=== PATIENT | female | born 1960 | race African-American/Black ===

== ENCOUNTER → 2016-12-28 | Outpatient (CLI) | payer OTHER ==
[~2016-12-28] MED LIST: ALBUTEROL17 GM INH; BLOOD PRESSURE MED; ULCER MED; VOLTAREN50 MG PO; ZITHROMAX1 G/PKT PO
--- NOTE | ~2016-12-28 | CT2 ---
[facility] Service of [facility] & [facility] RADIOLOGY TEXT RESULTS PATIENT: JAIRO ANNA LOCATION: [facility] : 56 UNIT #: [id number] AGE: [address]: SINTIA BENSON APRN SEX: F ORDER DR: [id number] [facility] [address] [place], [place] [address] [id number] O MR#: [id number] #: [id number] NAME: JAIRO ANNA : 1960 SEX: F STUDY DATE/TIME: 12/28/2016 14:02 UNIT: [facility] ROOM: STUDY DESCRIPTION: CT Abd and Pelv W Cont Attending Physician: Alvina Benson A.P.R.N. Referring Physician: Alvina Benson A.P.R.N. Ordering Physician: Alvina Benson A.P.R.N. Primary Care Physician: Alvina Benson A.P.R.N. MEDICAL IMAGING REPORT This report is preliminary unless electronic signature is present EXAM CT of the abdomen and pelvis with contrast. CLINICAL HISTORY Patient reports left-sided abdominal pain for 3 years. She reportedly has a history of an abnormal ultrasound. That study has not been submitted for comparison. TECHNIQUE Axial CT images were obtained from the dome of the diaphragm through the symphysis pubis following administration of oral and intravenous contrast material. This CT exam was performed with one or more of the following radiation dose reduction techniques: automatic exposure control, adjustment of mA and/or kV according to patient size, and iterative reconstruction. FINDINGS Images through the lung bases are clear. Stomach and proximal small bowel appear unremarkable. Liver appears normal. There is no intra or extrahepatic biliary dilatation. Gallbladder is surgically absent. Spleen and pancreas are within normal limits. There is a 1.1 cm left adrenal nodule which is larger than on the prior CT from March of 2010. This still statistically is most likely an adenoma but is incompletely characterized on this single phase exam. The patient does have a retroaortic left renal vein. There is no evidence of a mechanical bowel obstruction. The appendix is visualized and is within normal limits. Urinary bladder is normal as are the ovaries. There is some colonic diverticulosis without any evidence of diverticulitis. No free fluid or adenopathy is seen within the pelvis. Review of bony windows does not demonstrate any aggressive osseous abnormalities. [facility] Service of [facility] RADIOLOGY TEXT RESULTS PATIENT: JAIRO ANNA LOCATION: [facility] : 56 UNIT #: [id number] AGE: [address]: SINTIA BENSON [employer]BER OPERATOR SEX: F ORDER DR: IMPRESSION 1. This patient has a left adrenal nodule which has increased in size when compared to the exam from March 2010. Still only measures about a centimeter in size and statistically is most likely an adenoma but is incompletely assessed on this study. It would be better assessed with adrenal protocol CT or MRI. 2. The patient reportedly had an abnormal ultrasound, that study is not available for comparison. Certainly don't see any acute abnormalities within the abdomen. Solid organs are otherwise unremarkable. There is no evidence of mechanical bowel obstruction. While the gallbladder is absent, I don't see any intra or extrahepatic biliary dilatation. Dictated by... Roseline Ennis M.D. THIS IS AN ELECTRONICALLY VERIFIED REPORT Roseline Ennis M.D. at 12/30/2016 2:44 PM SARAVANAN/paramjit TD: 12/29/2016 23:02 JOB #: [id number] MEDICAL IMAGING REPORT Page 1 of 1 COPY
[2016-12-28 13:16] LABS: POC - CREATININE 0.88 mg/dL (0.44-1.03); POC - GFR >60.0 mL/min (>60)
== END | disposition home or self-care (01) ==
LOC: CCAT 12:32
PROVIDERS: Nurse Practitioner Family
DX: R10.9 Unspecified abdominal pain (principal); E27.8 Other specified disorders of adrenal gland; R93.5 Abnormal findings on diagnostic imaging of other abdominal regions, including retroperitoneum
CPT/HCPCS: 74177; 82565; Q9967